=== PATIENT | male | born 1975 | race Caucasian/White ===

== ENCOUNTER 2019-08-08 09:57 | Outpatient (CLI) | payer OTHER, SELFPAY ==
[2019-08-08 12:02] LABS: HCT 40.5 % (40.0-50.0); HGB 13.4 g/dL (13.5-17.5); Mean Corp. HGB Concentration 33.1 g/dL (32.0-36.0); Mean Corpuscular Hemoglobin 31.8 pg (27.0-33.0); Mean Platelet Volume 10.3 fL (8.0-11.0); Platelet Count 339 x1000/uL (130-400); RBC 4.22 m/cumm (4.50-6.00); RBC Distribution Width 12.7 % (11.8-14.1); White Blood Cell Count 7.28 k/cumm (4.4-10.8)
[2019-08-08 12:05] LABS: Hemoglobin A1C 5.8 % (3.8-5.6)
[2019-08-08 13:20] LABS: ALT 115 U/L (16-63); AST 96 U/L (15-37); Alkaline Phosphatase 59 U/L (46-116); Anion Gap 15.6 mmol/L (3-11); BUN 9 mg/dL (7-18); Bilirubin, Total 0.5 mg/dL (0.2-1.0); CO2 25.4 mmol/L (21.0-32.0); CREATININE 0.92 mg/dL (0.70-1.30); Calcium 9.2 mg/dL (8.5-10.1); Calculated LDL 128 mg/dL (<100); Chloride 101 mmol/L (98-107); Cholesterol 201 mg/dL (<200); Glucose 71 mg/dL (74-106); HDL Cholesterol 48 mg/dL (40-60); Potassium 4.5 mmol/L (3.5-5.1); Sodium 142 mmol/L (136-145); Total Protein 8.2 g/dL (6.4-8.2); Triglyceride 125 mg/dL (<150)
[2019-08-08 13:32] LABS: Uric Acid 9.9 mg/dL (3.5-7.2)
== END 2019-08-08 10:17 ==
PROVIDERS: PCP Family Medicine; Visit Provider Family Medicine
DX: I10 Essential (primary) hypertension (principal); M10.9 Gout, unspecified
CPT/HCPCS: 36415; 80053; 80061; 85027; 83036; 84550

== ENCOUNTER 2019-09-04 03:51 | Outpatient (CLI) | payer OTHER, SELFPAY ==
[2019-09-04 14:16] LABS: Iron 148 ug/dL (65-175); Total Iron Binding Capacity 345 ug/dL (250-450); Transferrin Sat 43 % (20-55)
[2019-09-04 14:30] LABS: ALT 54 U/L (16-63); AST 56 U/L (15-37); Albumin 4.2 g/dL (3.4-5.0); Alkaline Phosphatase 56 U/L (46-116); Bilirubin, Direct 0.21 mg/dL (0.00-0.20); Bilirubin, Total 0.5 mg/dL (0.2-1.0); TSH (W/Ref FT4) 2.06 uIU/mL (0.36-3.74); Total Protein 8.6 g/dL (6.4-8.2)
[2019-09-04 14:53] LABS: Ferritin 881 ng/mL (26-388)
[2019-09-05 10:49] LABS: HBs Antibody, Qual Negative (See Note); HBs Antibody, Quant <3.1 mIU/mL (See Note); Hepatitis B Core Antibody Negative (Negative); Hepatitis B surface Ag Negative (Negative); Hepatitis C Ab w Rflx HCV PCR Negative (Negative)
== END 2019-09-04 04:11 ==
PROVIDERS: PCP Family Medicine; Visit Provider Family Medicine
DX: R94.5 Abnormal results of liver function studies (principal); Z11.59 Encounter for screening for other viral diseases
CPT/HCPCS: 36415; 80076; 86704; 86706; 86803; 87340; 82728; 83540; 83550; 84443

== ENCOUNTER 2019-09-10 00:58 | Outpatient (CLI) | payer OTHER, SELFPAY ==
--- NOTE | 2019-09-10 08:15 | DI.US_ITS ---
TECHNIQUE: Ultrasound abdomen performed using standard protocol. COMPARISON: No exams were available for comparison FINDINGS: LIVER: Increased echogenicity consistent with fatty infiltration. Hepatopedal flow in the Portal Vei n. No mass. GALLBLADDER: No evidence of cholelithiasis. No evidence of wall thickening. No pericholecystic fluid identified. 5 mm., echogenic, immobile nodule seen along the wall of the gallbladder most suggestive of a polyp. KIDNEYS: Kidneys are symmetric in size. No evidence of renal calculi. No evidence of hydronephrosis. No renal mass or cyst identified. BILIARY SYSTEM: Common bile duct measures 4.8 mm. No intrahepatic biliary ductal dilation. KOEHLER'S SIGN: Negative. PANCREAS: Normal where visualized. SPLEEN: Not enlarged. ABDOMINAL AORTA AND IVC: Visualized portions normal caliber. ASCITES: None seen. IMPRESSION: 1. Hepatic steatosis. 2. Gallbladder polyp. DATA REPOSITORY:
== END 2019-09-10 01:18 ==
PROVIDERS: PCP Family Medicine; Visit Provider Family Medicine
DX: R94.5 Abnormal results of liver function studies (principal); K76.0 Fatty (change of) liver, not elsewhere classified; K82.4 Cholesterolosis of gallbladder
CPT/HCPCS: 76700

== ENCOUNTER 2021-02-25 01:21 | Outpatient (CLI) | payer MEDICAID, SELFPAY ==
--- NOTE | 2021-02-25 07:15 | DI.MAMMO_ITS ---
Exam(s) US BREAST LT COMPLETE MG MAMMO DIAGNOSTIC BI EXAM: MG MAMMO DIAGNOSTIC BI AND COMPLETE LEFT BREAST ULTRASOUND CLINICAL HISTORY: lump of left breast, N63.0, N63.20. TECHNIQUE: BOTH CC AND MLO VIEWS OF BOTH BREASTS WERE OBTAINED were obtained with 3D Tomosynthesiste chnique and utilizing computer aided detection (CAD). Also performed complete left breast ultrasound including all 4 quadrants as well as the retroareolar region and left axilla COMPARISON: None. This 45-year-old male patient has left breast pain. He informs me that he has blount d asymmetry in the breast since being in teenager but it is more painful as of late. FINDINGS: DIAGNOSTIC BILATERAL MAMMOGRAM: There Is bilateral gynecomastia although this is significantly more prominent on the left side. Umanzor lamin, there is no discernible focal mass no malignant-appearing microcalcification groups. No archite ctural distortion or skin thickening-traction. COMPLETE LEFT BREAST ULTRASOUND: There is evidence of gynecomastia in left breast but no solid or significant cystic lesions evident. Also no findings in the immediate retroareolar region. Left axilla is negative for significant amada opathy. IMPRESSION: Gynecomastia, significantly more prominent in the left breast. Appropriate follow-up is repeat breast imaging in 6 months. The patient was informed of the findings by myself and follow-up recommendations prior to leaving the department today. BI-RADS Category 3 - 6 month - Probably Benign Finding: Recommend follow-up mammography in 6 months Breast Density - Category C - Heterogeneously dense Breast density Category C or D implies that the patient has dense breast tissue. Dense breast tissue can make it harder to find cancer on a mammogram. Dense breast tissue is also associated with an incr eased risk of breast cancer. This information about the result of the mammogram report was provided to the patient to raise their awareness. Use this report when you speak with the patient about their risks for breast cancer, which includes their family history. At that time, you may recommend additional screening tests (Ultrasoun d or MRI) as these tests may add significant information. A negative radiographic report should not delay biopsy if a dominant or clinically suspicious mass is present. Up to ten percent of cancers are not identified on mammography. A negative report may reinforce clinical impression. Adenosis and dense breasts may obscure an underlying neoplasm. False positive reports average 6 to 10%. Patient will receive a letter notifying them of these results.
== END 2021-02-25 01:41 ==
PROVIDERS: PCP Family Medicine; Visit Provider Family Medicine
DX: N62 Hypertrophy of breast; N64.4 Mastodynia
CPT/HCPCS: 76642; 77062; 77066; G0279

== ENCOUNTER 2021-05-21 02:20 | Outpatient (CLI) | payer MEDICAID, SELFPAY ==
[2021-05-21 13:37] LABS: Anion Gap 13.7 mmol/L (3-11); BUN 10 mg/dL (7-18); CO2 27.3 mmol/L (21.0-32.0); Calcium 9.7 mg/dL (8.5-10.1); Chloride 100 mmol/L (98-107); Glucose 96 mg/dL (74-106); Potassium 4.3 mmol/L (3.5-5.1); Sodium 141 mmol/L (136-145)
== END 2021-05-21 02:21 | disposition home or self-care (01) ==
LOC: LBO 02:20
PROVIDERS: PCP Family Medicine; Visit Provider Family Medicine
DX: I10 Essential (primary) hypertension (principal)
CPT/HCPCS: 36415; 80048

== ENCOUNTER 2022-10-03 12:00 | Emergency (ER) | payer MEDICAID, SELFPAY ==
[2022-10-03 12:05] VITALS: BP 182/112; PULSE 115; RESP 18; TEMP 37.3; O2SAT 97
[2022-10-03 12:25] LABS: Abs Immature Grans 0.02 10^3/uL (0.0-0.06); Absolute Basophil Count 0.03 10^3/uL (0.0-0.2); Absolute Eosinophil Count 0.01 10^3/uL (0.0-0.7); Absolute Lymphocyte Count 0.94 10^3/uL (1.2-3.4); Absolute Monocyte Count 0.72 10^3/uL (0.1-0.8); Absolute Neutrophil Count 5.55 10^3/uL (1.2-6.7); Basophils % 0.4; Eosinophils % 0.1; HCT 37.6 % (40.0-50.0); HGB 13.4 g/dL (13.5-17.5); Immature Grans % 0.3; Lymphocytes % 12.9; MCH 34.4 pg (27.0-33.0); MCHC 35.6 % (32.0-36.0); MCV 97 fL (80-95); MPV 10.1 fL (8.0-11.0); Monocytes % 9.9; Neutrophils % 76.4; Platelet Count 282 10^3/uL (130-400); RBC 3.89 10^6/uL (4.36-5.78); RDW 12.5 % (11.8-14.1); RDW-SD 44.3 fL; WBC 7.27 10^3/uL (4.4-10.8)
[2022-10-03] MEDS: ACETAMINOPHEN 1,000 MG/100 ML BTL 400 MG IVPB (12:41)
[2022-10-03 12:52] LABS: ALT 39 U/L (16-63); AST 54 U/L (15-37); Albumin 3.5 g/dL (3.4-5.0); Alkaline Phosphatase 73 U/L (46-116); Anion Gap 10.4 mmol/L (3-11); BUN 21 mg/dL (7-18); Bilirubin, Total 1.2 mg/dL (0.2-1.0); CO2 28.6 mmol/L (21.0-32.0); CREATININE 0.9 mg/dL (0.70-1.30); Calcium 9.8 mg/dL (8.5-10.1); Chloride 95 mmol/L (98-107); Estimated GFR 107.33 (mL/min/1.73m2); Glucose 117 mg/dL (74-106); Potassium 3.4 mmol/L (3.5-5.1); Sodium 134 mmol/L (136-145); Total Protein 8.6 g/dL (6.4-8.2); Uric Acid 6.4 mg/dL (3.5-7.2)
--- NOTE | 2022-10-03 13:14 | W.ED.GENAD ---
Discharge Plan Disposition Patient Disposition: Home Discharge Details Clinical Impression: Gout Primary Care Provider: Lyric Whitaker ED Provider: Willi Gordon Home Meds and New Rx's Prescriptions: New prednisone 50 mg tablet 50 mg PO DAILY 5 Days Qty: 5 0RF prednisone 10 mg tablet See Rx Instructions .ROUTE .COMPLEX Qty: 20 0RF Rx Instructions: Start taper once symptoms have improved on higher dose 40mg x 2 days, 30mg x 2 days, 20mg x 2 days, 10mg x 2 days Continued lisinopril 40 mg tablet 40 mg PO DAILY Qty: 90 3RF No Action allopurinol 300 mg tablet 300 mg PO DAILY Qty: 90 3RF Discharge Instructions Instructions: Gout (ED) Additional Instructions: Please start higher dose of steroids and take daily for up to 5 days. Once symptoms improve or you finish the 5 days of steroids please start your steroid taper. Please follow-up with your primary care provider for reassessment especially if your symptoms are not improving. Referrals: Lyric Whitaker MD [Primary Care Provider] - 5 days (If not improving call primary care office for follow-up appointment) Medical Decision Making Patient presenting to the emergency department for chief complaint of worsening gout. Patient states he has a long ongoing history of gout, takes allopurinol which she had been off for a while. He has been staying well-hydrated and thought he was getting better but over the last 2 days has noted some worsening symptoms. Pain is mostly in left knee and ankle which is typical for his gout flareups. Patient denies any fever chills, chest pain shortness of breath or other symptoms. Physical exam shows left knee effusion and swelling without erythema, patient can fully extend knee and bend knee but there is significant pain. There is some slight redness noted to left foot with also some slight edema. Exam is otherwise unremarkable. We will check patient's labs given worsening gout. Pending results will give IV acetaminophen. Review of labs show a chronic but stable anemia, patient does have slightly low sodium potassium and chloride which I feel is from patient attempting to over hydrate. BUN is elevated at 21 otherwise no other renal abnormality. Patient has elevated BUN and AST which patient reports he has a long ongoing drinker that is recently stopped. Patient's uric acid is only 6.4 but I still am concerned for gout given that patient has had exact same symptoms in the past that he x-ray reports are worse than today. Given that patient has already been using NSAIDs at home and noticing worsening symptoms and allopurinol will place patient on steroid taper. Patient encouraged to follow-up with primary care provider return for new or worsening symptoms. After discussion of diagnosis and plan of care patient has no further needs, questions, or concerns and states clear understanding to return to the emergency department for any worsening symptoms. This documentation was generated using [employer] dictation system, please disregard any oddities of phrase or misspellings. Medical Records Medical records reviewed: Yes I reviewed the patient's medical records. Medical records narrative: Previous primary care records Lab Data Lab results reviewed: Yes I reviewed the patient's lab results. HPI General Mode of arrival: ambulatory. Date/Time Provider Initiated Documentation: 10/03/22 12:14. Limitations to Documentation: no limitations. Information obtained by: patient and RN notes reviewed. History of Present Illness 47 year old M presents to the emergency department with the chief complaint of Gout flareup left lower extremity, described as moderate and similar to prior episodes, with intensity rated at 7. Quality is described as aching, and is localized to the left and lower extremity. Patient started experiencing this day(s) (10) and it has been constant. No relieving factors improve symptom(s), No exacerbating factors reported . Patient notes no other symptoms.. Patient did receive the following treatments prior to arrival, NSAID Related Data Home Medications Medication Instructions Recorded Confirmed allopurinol 300 mg tablet 300 mg PO DAILY #90 tabs 09/05/19 10/03/22 lisinopril 40 mg tablet 40 mg PO DAILY #90 tabs 05/29/21 10/03/22 prednisone 10 mg tablet See Rx Instructions .Route 10/03/22 .COMPLEX #20 tabs prednisone 50 mg tablet 50 mg PO DAILY 5 days #5 tabs 10/03/22 Previous Rx's Medication Instructions Recorded allopurinol 300 mg tablet 300 mg PO DAILY #90 tabs 09/05/19 lisinopril 40 mg tablet 40 mg PO DAILY #90 tabs 05/29/21 prednisone 10 mg tablet See Rx Instructions .Route 10/03/22 .COMPLEX #20 tabs prednisone 50 mg tablet 50 mg PO DAILY 5 days #5 tabs 10/03/22 Allergies Allergy/AdvReac Type Severity Reaction Status Date / Time No Known Allergies Allergy Verified 10/03/22 12:10 General Stated Complaint: Cellulitis HEVER: 3 Review of Systems Constitutional Constitutional: Denies chills and Denies fever(s) Cardiovascular Cardiovascular: Denies chest pain and Denies dyspnea Respiratory Respiratory: Denies dyspnea Gastrointestinal Gastrointestinal: Denies abdominal pain Genitourinary Genitourinary: Denies oliguria and Denies difficulty urinating Musculoskeletal Musculoskeletal: Reports as per HPI, Reports arthralgias and Reports joint swelling Integumentary/Breasts Skin/Breast: Reports erythema PFSH All Active Problems (Updated 10/03/22 @ 13:24 by Willi Gordon NP) Breast lump in upper outer quadrant (Acute) Elevated LFTs (Acute) Gout (Chronic) Family history of essential hypertension (Acute) Hypertension (Chronic) Family History Mother No problems noted. Father Rectal cancer Hypertension Son No problems noted. Maternal Grandfather , age 77 Leukemia Paternal Grandfather , age 62 No problems noted. Maternal Grandmother No problems noted. Paternal Grandmother , age 68 Stroke ? Social History Smoking/Tobacco Use Status: Never Smoking risk assessment performed?: Yes Alcohol Intake: former Drug use: Never Substance use type: does not use Current gender identity: decline to answer What is your relationship status?: refused to answer How often do you talk on the phone with friends or family?: decline to answer How often do you get together with friends or relatives?: decline to answer How often do you attend scientology or pentecostal services?: decline to answer Do you belong to any clubs or organized social groups?: decline to answer Panel score (0-1 are the most socially isolated patients): 0 What type of physical activity do you participate in: decline to answer Duration: decline to answer Frequency: decline to answer Sonam/Lutheran: No preference Special sonam needs: No Do you feel safe at home: Yes Do you feel safe in your relationship?: Yes Exam Const General: cooperative, no acute distress and not ill appearing Orientation: alert, awake and oriented x3 Resp Effort & Inspection: normal respiratory effort, able to speak in complete sentences and no respiratory distress Cardio Rate: regular rate Rhythm: regular rhythm Heart Sounds: S1 normal and S2 normal Pulses: normal peripheral pulses Skin General skin exam: no rashes or lesions noted Neuro General: patient alert, patient awake, patient oriented x3, moves all extremities and no focal motor deficits Sensory Exam: no sensory deficits noted Extrem Left lower extremity: hip/thigh Details: normal to inspection; no tenderness, knee Details: swelling Location: of the pre-patellar area and of the infrapatellar area and abnormal ROM Details: pain with active ROM and pain with passive ROM; able to extend lower leg actively, lower leg Details: normal to inspection; no tenderness, ankle Details: tenderness, swelling and normal ROM and foot Details: tenderness, edema and vascular exam Details: dorsalis pedis pulse present and normal capillary refill Course Vital Signs Vital signs: Vital Signs Temperature 37.3 C 10/03/22 12:05 Pulse 115 H 10/03/22 12:05 Respiratory Rate 18 10/03/22 12:05 Blood Pressure 182/112 H 10/03/22 12:05 Pulse Oximetry 97 10/03/22 12:05 Temperature 37.3 C 10/03/22 12:05 Pulse 115 H 10/03/22 12:05 Respiratory Rate 18 10/03/22 12:05 Respiratory Effort Normal, Non-Labored 10/03/22 12:11 Blood Pressure 182/112 H 10/03/22 12:05 Blood Pressure Position Supine 10/03/22 12:05 Pulse Oximetry 97 10/03/22 12:05 Oxygen Delivery Method Room Air 10/03/22 12:05 Oxygen Flow Rate 0 10/03/22 12:05 Lab/Test Results Lab/Test Results: Laboratory Tests Range/Units 10/03/22 10/03/22 12:20 12:20 WBC (4.4-10.8) 10^3/uL 7.27 RBC (4.36-5.78) 10^6/uL 3.89 L Hgb (13.5-17.5) g/dL 13.4 L Hct (40.0-50.0) % 37.6 L MCV (80-95) fL 97 H MCH (27.0-33.0) pg 34.4 H MCHC (32.0-36.0) % 35.6 RDW (11.8-14.1) % 12.5 Plt Count (130-400) 10^3/uL 282 MPV (8.0-11.0) fL 10.1 Immature Gran % 0.3 Neutrophils % 76.4 Lymphocytes % 12.9 Monocytes % 9.9 Eosinophils % 0.1 Basophils % 0.4 Nucleated RBC % (0.0-0.3) % 0.0 Absolute Neutrophils (1.2-6.7) 10^3/uL 5.55 Absolute Lymphocytes (1.2-3.4) 10^3/uL 0.94 L Absolute Monocytes (0.1-0.8) 10^3/uL 0.72 Absolute Eosinophils (0.0-0.7) 10^3/uL 0.01 Absolute Basophils (0.0-0.2) 10^3/uL 0.03 Sodium (136-145) mmol/L 134 L Potassium (3.5-5.1) mmol/L 3.4 L Chloride (98-107) mmol/L 95 L Carbon Dioxide (21.0-32.0) mmol/L 28.6 Anion Gap (3-11) mmol/L 10.4 BUN (7-18) mg/dL 21 H Creatinine (0.70-1.30) mg/dL 0.9 Est GFR (CKD-EPI 2020) (mL/min/1.73m2) 107.33 Glucose (74-106) mg/dL 117 H Uric Acid (3.5-7.2) mg/dL 6.4 Calcium (8.5-10.1) mg/dL 9.8 Total Bilirubin (0.2-1.0) mg/dL 1.2 H AST (15-37) U/L 54 H ALT (16-63) U/L 39 Alkaline Phosphatase (46-116) U/L 73 Total Protein (6.4-8.2) g/dL 8.6 H Albumin (3.4-5.0) g/dL 3.5
[2022-10-03 13:40] VITALS: BP 179/112; PULSE 94; RESP 20; O2SAT 97
[2022-10-03] MEDS: predniSONE 20 MG TAB 60 MG PO (13:40)
== END 2022-10-03 13:41 | disposition home or self-care (01) ==
PROVIDERS: Emergency Provider Nurse Practitioner Family; PCP Family Medicine
DX: M10.9 Gout, unspecified (principal); E87.6 Hypokalemia; D53.9 Nutritional anemia, unspecified; R79.89 Other specified abnormal findings of blood chemistry
CPT/HCPCS: 80053; 96365; 99284; 84550; 85025; J0131; J7512

== ENCOUNTER 2023-05-18 03:07 | Outpatient (CLI) | payer OTHER, SELFPAY ==
[2023-05-18 11:58] LABS: Abs Immature Grans 0.02 10^3/uL (0.0-0.06); Absolute Basophil Count 0.03 10^3/uL (0.0-0.2); Absolute Eosinophil Count 0.01 10^3/uL (0.0-0.7); Absolute Lymphocyte Count 1.73 10^3/uL (1.2-3.4); Absolute Monocyte Count 0.63 10^3/uL (0.1-0.8); Absolute Neutrophil Count 3.97 10^3/uL (1.2-6.7); Basophils % 0.5; Eosinophils % 0.2; HCT 37.9 % (40.0-50.0); HGB 13.8 g/dL (13.5-17.5); Immature Grans % 0.3; Lymphocytes % 27.1; MCH 35.2 pg (27.0-33.0); MCHC 36.4 % (32.0-36.0); MCV 97 fL (80-95); MPV 9.9 fL (8.0-11.0); Monocytes % 9.9; Platelet Count 182 10^3/uL (130-400); RBC 3.92 10^6/uL (4.36-5.78); RDW 13.4 % (11.8-14.1); RDW-SD 47.9 fL; WBC 6.39 10^3/uL (4.4-10.8)
[2023-05-18 12:41] LABS: ALT 66 U/L (16-63); AST 137 U/L (15-37); Albumin 4.3 g/dL (3.4-5.0); Alkaline Phosphatase 74 U/L (46-116); Anion Gap 11.7 mmol/L (3-11); BUN 12 mg/dL (7-18); Bilirubin, Total 0.6 mg/dL (0.2-1.0); CO2 27.3 mmol/L (21.0-32.0); CREATININE 0.9 mg/dL (0.70-1.30); Calcium 9.7 mg/dL (8.5-10.1); Calculated LDL 155 mg/dL (<100); Chloride 99 mmol/L (98-107); Cholesterol 252 mg/dL (<200); Estimated GFR 107.33 (mL/min/1.73m2); Glucose 92 mg/dL (74-106); HDL Cholesterol 61 mg/dL (40-60); Potassium 4.3 mmol/L (3.5-5.1); Sodium 138 mmol/L (136-145); TSH (W/Ref FT4) 1.92 uIU/mL (0.36-3.74); Total Protein 9.2 g/dL (6.4-8.2); Triglyceride 183 mg/dL (<150)
== END 2023-05-18 03:08 | disposition home or self-care (01) ==
LOC: LBO 03:07
PROVIDERS: PCP Family Medicine; Visit Provider Family Medicine
DX: E03.9 Hypothyroidism, unspecified (principal); I10 Essential (primary) hypertension; R68.83 Chills (without fever); Z13.6 Encounter for screening for cardiovascular disorders; Z00.00 Encounter for general adult medical examination without abnormal findings
CPT/HCPCS: 36415; 80053; 80061; 84443; 85025

== ENCOUNTER 2023-05-23 10:10 | Day surgery (SDC) | payer OTHER, SELFPAY ==
--- NOTE | 2023-05-22 15:21 | W.PM.DSUDISC ---
Date of service: 05/23/23 Discharge Plan Disposition Patient Disposition: Home Condition: Good Discharge Details Reason For Visit: screening colonoscopy Attending Provider: Hemal Martins Primary Care Provider: Lyric Whitaker Home Meds and New Rx's Prescriptions: Continued colchicine (gout) [Mitigare] 0.6 mg capsule See Rx Instructions PO .COMPLEX Qty: 20 1RF Rx Instructions: 2 tabs po at gout onset, then 1 tab po 6 hours later. May use once daily until gout episode resolves. orally; lisinopril 40 mg tablet 40 mg PO DAILY Qty: 90 3RF metoprolol succinate 25 mg tablet extended release 24 hr 25 mg PO DAILY Qty: 30 3RF Discontinued bisacodyl [Dulcolax (bisacodyl)] 5 mg tablet,delayed release (DR/EC) 5 mg PO ONCE Qty: 4 0RF Rx Instructions: Take per colonoscopy instructions provided by ordering providers office polyethylene glycol 3350 17 gram/dose powder 17 g PO ONCE Qty: 238 0RF Rx Instructions: Take per colonoscopy instructions provided by ordering providers office Discharge Instructions Additional Instructions: 1. If tolerated, consume a soft, low fiber diet for 1-2 days. [address] Do not drive, drink alcohol, operate machinery, make critical decisions, or do activities that require coordination or balance for 24 hours. 3. Because air was put into your colon during the procedure, expelling air from your rectum (passing gas or farting) is normal. 4. You may not have a bowel movement for 1-3 days because of the colonoscopy prep. This is normal. 5. Go directly to the emergency room if you notice any of the following: Develop chills (warm to touch), or if you have a thermometer and your temperature is above 101 Difficulty breathing or difficultly swallowing Persistent vomiting Severe abdominal pain, other than gas cramps Severe chest pain Black, tarry stools Any bleeding ? exceeding one tablespoon 6. Call your physician if the site where your intravenous was started becomes red, swollen, painful, and warm to touch. 7. Your physician has reviewed your pre-procedure medications. Please continue to take those medications as previously ordered. You will be given specific information/education regarding any changes to your medications before leaving. Activity:: Activity as Tolerated Diet:: As Tolerated
--- NOTE | 2023-05-22 15:22 | W.COLOREPORT ---
Date of service: 05/23/23 Colonoscopy Report Date of procedure: 05/23/23 Pre-op diagnosis general: screening colonoscopy Procedure: Colonoscopy Surgeon: Hemal Martins Anesthesia Type: General:No Airway Complications: None Disposition: same day Indications: Demetris is 47 years old and he is here for his first screening colonoscopy Prep: Miralax/Dulcolax
--- NOTE | 2023-05-23 07:14 | W.ANESPRE ---
General Info Date of Service Date Performed: 05/23/23 Height: 5 ft 6 in Weight: 84.822 kg Body Mass Index (BMI): 30.2 Surgical Procedure: Operation Date: 05/23/23 12:05 Proposed Procedure Side Surgeon p Colonoscopy Hemal Martins MD Meds Allergies and Home Medications Allergies Allergy/AdvReac Type Severity Reaction Status Date / Time No Known Allergies Allergy Verified 05/23/23 10:26 Home Medication Medication Instructions Recorded colchicine (gout) 0.6 mg capsule See Rx Instructions PO .COMPLEX 10/06/22 (Mitigare) #20 caps lisinopril 40 mg tablet 40 mg PO DAILY #90 tabs 04/06/23 metoprolol succinate 25 mg 25 mg PO DAILY #30 tabs 05/13/23 tablet,extended release 24 hr Current Visit Medications: Current Medications Generic Name Dose Route Start Last Admin Trade Name Freq PRN Reason Stop Dose Admin Hyoscyamine Sulfate 0.125 mg 05/22/23 15:23 Hyoscyamine 0.125 Mg Sl/Oral/Chew SL 06/21/23 15:22 DIRECTED PRN Ringer's Solution 1,000 mls @ 80 mls/hr 05/23/23 06:00 IV 05/23/23 23:59 INFUSION KEZIA IV Miscellaneous Supplies 1 each 05/23/23 06:00 Iv Access IV 05/23/23 23:59 DIRECTED KEZIA Ondansetron HCl 4 mg 05/22/23 15:23 Ondansetron 4 Mg/2 Ml Vial IVP 06/21/23 15:22 Q4H PRN PRN Nausea / Vomiting Sodium Chloride 0 ml 05/23/23 06:00 Normal Saline Flush 10 Ml Syr IV 05/23/23 23:59 PRN PRN Sodium Chloride 0 ml 05/23/23 06:00 Normal Saline 10 Ml Vial IJ 05/23/23 23:59 DIRECTED PRN Sterile Water 0 ml 05/23/23 06:00 Water,Injection,Sterile 10 Ml Vial IJ 05/23/23 23:59 DIRECTED PRN PFSH Active Problems Active Problems: Problem Status Onset Code Abnormal liver enzymes R74.8 FH: colon cancer in relative diagnosed at >50 years old Z80.0 Gout M10.9 Hypertension ~2012 I10 Medical History Medical History Comments:: Will be doing home BP monitoring with new addition of Metopropol per pre op request Tobacco Smoking/Tobacco Use Status: Never Alcohol Alcohol Intake: current Alcohol intake frequency: 3 or more drinks per day Alcohol type: beer, wine, hard liquor and other Substance Use Substance use: Never Substance use type: does not use Vital Signs and Lab Results Vital Signs Most Recent Vital Signs in EMR: Temp Pulse Resp BP Pulse Ox 36.4 C L 107 H 18 209/118 H 98 05/23/23 10:28 05/23/23 10:28 05/23/23 10:28 05/23/23 10:28 05/23/23 10:28 Lab Results Blood Type / Crossmatch: No Data to Display Complete Blood Count: White Blood Count 6.39 10^3/uL (4.4-10.8) 05/18/23 11:55 Red Blood Count 3.92 10^6/uL (4.36-5.78) L 05/18/23 11:55 Hemoglobin 13.8 g/dL (13.5-17.5) 05/18/23 11:55 Hematocrit 37.9 % (40.0-50.0) L 05/18/23 11:55 Platelet Count 182 10^3/uL (130-400) 05/18/23 11:55 Complete Metabolic Panel: Sodium 138 mmol/L (136-145) 05/18/23 11:55 Potassium 4.3 mmol/L (3.5-5.1) 05/18/23 11:55 Chloride 99 mmol/L (98-107) 05/18/23 11:55 Carbon Dioxide 27.3 mmol/L (21.0-32.0) 05/18/23 11:55 BUN 12 mg/dL (7-18) 05/18/23 11:55 Creatinine 0.9 mg/dL (0.70-1.30) 05/18/23 11:55 Est GFR (CKD-EPI 2020) 107.33 (mL/min/1.73m2) 05/18/23 11:55 Calcium 9.7 mg/dL (8.5-10.1) 05/18/23 11:55 Albumin 4.3 g/dL (3.4-5.0) 05/18/23 11:55 Glucose 92 mg/dL (74-106) 05/18/23 11:55 Liver Function Panel: Alanine Aminotransferase (ALT/SGPT) 66 U/L (16-63) H 05/18/23 11:55 Aspartate Amino Transf (AST/SGOT) 137 U/L (15-37) H 05/18/23 11:55 Coagulation Panel: No Data to Display Cardiac Panel: No Data to Display Arterial Blood Gas: No Data to Display Venous Blood Gas: No Data to Display Pancreas Panel: No Data to Display Thyroid Panel: Thyroid Stimulating Hormone (TSH) 1.92 uIU/mL (0.36-3.74) 05/18/23 11:55 Infectious Disease: No Data to Display Blood Cultures: No Data to Display Toxicology Panel: No Data to Display Anesthesia Assessment and Plan Anesthesia History Personal History: No History of Anesthesia Complications Family History: Other Exercise Tolerance Exercise Tolerance: Metabolic Equivalents>4 Cardiac & Pulmonary Exam Cardiac Exam: Other Pulmonary Exam: Other Implantable Cardiac Device Does patient have a Pacemaker or an ICD?: No Airway Exam Known Difficult Airway: No Mallampati Class: Unable to Assess Mouth Opening: Unable to Assess Thyromental Distance: Other Neck Range of Motion: Unable to Assess Neck Circumference: Normal Teeth Condition: Unable to Assess ASA Classification ASA Score: ASA 3 Emergency Case?: No NPO Status NPO Status: NPO Clears >2 hours, Solids >8 hours Anesthesia Plan Resuscitation Status: Full Code Anesthesia Technique: General Anesthesia Airway Planned: Natural Airway Monitors Used: Standard Monitors Preoperative Comments:: 47 yo male for colo. Sig PMHx: HTN (metop, lisinopril), gout, never smoker, occ EtOH. A full preop was not performed. Demetris's BP consistently with DBP > 110, discussed risks of proceeding. States that he does have a headache today that he typically does not have even when fasted. We discussed that he should be seen today by someone in regards to his BP and he was encouraged to discuss this with the PCP who has been actively management his BP (he is scheduled for liver and renal US in the near future) or he should consider going to the ER. We discussed the risk of his BP (stroke) and that he should give consideration of presenting to the ED.
[2023-05-23 10:28] VITALS: BP 209/118; PULSE 107; RESP 18; TEMP 36.4; O2SAT 98
[2023-05-23 11:14] VITALS: BMI 30.2
== END 2023-05-23 10:11 | disposition home or self-care (01) ==
LOC: SUR 10:10
PROVIDERS: PCP Family Medicine; Visit Provider Surgery
DX: Z53.09 Procedure and treatment not carried out because of other contraindication (principal); I10 Essential (primary) hypertension

== ENCOUNTER 2023-06-10 03:13 | Outpatient (CLI) | payer OTHER, SELFPAY ==
[2023-06-10 13:34] LABS: Bilirubin Small (Negative); Blood Negative (Negative); Clarity Clear (Clear); Glucose Negative (Negative); Ketones 15 mg/dL (Negative); Leukocyte Esterase Negative (Negative); Nitrite Negative (Negative); pH 6.5 (5-8)
[2023-06-10 13:42] LABS: Bacteria Negative HPF (Negative); C & S Indicated? No; Casts 0-2 Hyaline LPF (Negative); Crystals Negative HPF (Negative); Epithelial Cells Rare HPF (Negative); Mucus Negative (Negative); RBC Negative HPF (0-2); WBC Negative HPF (0-5)
[2023-06-10 13:50] LABS: PROTEIN 43.6 mg/dL; Prot/Crea Ur Ratio 0.11
[2023-06-10 13:56] LABS: ALT 59 U/L (16-63); AST 79 U/L (15-37); Albumin 4.9 g/dL (3.4-5.0); Alkaline Phosphatase 73 U/L (46-116); Anion Gap 13.7 mmol/L (3-11); BUN 17 mg/dL (7-18); CO2 27.3 mmol/L (21.0-32.0); CREATININE 1.1 mg/dL (0.70-1.30); Calcium 10.3 mg/dL (8.5-10.1); Chloride 98 mmol/L (98-107); Estimated GFR 83.84 (mL/min/1.73m2); Glucose 104 mg/dL (74-106); Sodium 139 mmol/L (136-145); Total Protein 9.4 g/dL (6.4-8.2)
[2023-06-10 22:21] LABS: HIV-1/2 Ag & Ab Screen Negative (Negative)
[2023-06-11 00:29] LABS: Hepatitis C Ab w Rflx HCV PCR Negative (Negative)
[2023-06-13 13:59] LABS: Albumin 57.4 % (55.8-66.1); Albumin g/dL 5.3 g/dL (3.6-5.2); Total Protein 9.3 g/dL (6.3-8.2)
[2023-06-13 15:36] LABS: Albumin, Urine % 19.2 %; Albumin, Urine mg/dL 2 mg/dL; Globulins, Urine % 80.8 %; Globulins, Urine mg/dL 7 mg/dL; Immunotyping, Urine (See Note); Total Protein Urine 9 mg/dL (See Note)
== END 2023-06-10 03:14 | disposition home or self-care (01) ==
LOC: LBO 03:13
PROVIDERS: PCP Family Medicine; Visit Provider Family Medicine
DX: I10 Essential (primary) hypertension (principal); M1A.09X0 Idiopathic chronic gout, multiple sites, without tophus (tophi); R74.8 Abnormal levels of other serum enzymes; Z11.4 Encounter for screening for human immunodeficiency virus [HIV]; R30.0 Dysuria; Z00.00 Encounter for general adult medical examination without abnormal findings; K76.0 Fatty (change of) liver, not elsewhere classified
CPT/HCPCS: 36415; 80053; 84156; 84166; 86335; 86803; 87389; 81003; 81015; 82565; 84165

== ENCOUNTER 2023-08-16 03:23 | Outpatient (CLI) | payer OTHER, SELFPAY ==
[2023-08-16 16:12] LABS: ALT 64 U/L (16-63); AST 125 U/L (15-37); Albumin 4.6 g/dL (3.4-5.0); Alkaline Phosphatase 81 U/L (46-116); Anion Gap 16.6 mmol/L (3-11); BUN 13 mg/dL (7-18); CO2 23.4 mmol/L (21.0-32.0); CREATININE 1.1 mg/dL (0.70-1.30); Calcium 9.7 mg/dL (8.5-10.1); Chloride 97 mmol/L (98-107); Estimated GFR 83.84 (mL/min/1.73m2); Glucose 89 mg/dL (74-106); Potassium 4.3 mmol/L (3.5-5.1); Sodium 137 mmol/L (136-145); Total Protein 9.8 g/dL (6.4-8.2)
== END 2023-08-16 03:24 | disposition home or self-care (01) ==
LOC: LBO 03:23
PROVIDERS: PCP Family Medicine; Visit Provider Family Medicine
DX: Z00.00 Encounter for general adult medical examination without abnormal findings (principal); I10 Essential (primary) hypertension
CPT/HCPCS: 36415; 80053

== ENCOUNTER 2023-11-09 12:46 | Outpatient (CLI) | payer OTHER, SELFPAY ==
[2023-11-09 15:38] LABS: Abs Immature Grans 0.02 10^3/uL (0.0-0.06); Absolute Basophil Count 0.05 10^3/uL (0.0-0.2); Absolute Lymphocyte Count 1.51 10^3/uL (1.2-3.4); Absolute Monocyte Count 0.48 10^3/uL (0.1-0.8); Absolute Neutrophil Count 5.47 10^3/uL (1.2-6.7); Basophils % 0.7 %; HGB 14.4 g/dL (13.5-17.5); Immature Grans % 0.3 %; Lymphocytes % 20.1 %; MCH 35.6 pg (27.0-33.0); MCHC 35.1 % (32.0-36.0); MCV 101 fL (80-95); MPV 10.1 fL (8.0-11.0); Monocytes % 6.4 %; Neutrophils % 72.5 %; Platelet Count 209 10^3/uL (130-400); RBC 4.05 10^6/uL (4.36-5.78); RDW 12.8 % (11.8-14.1); WBC 7.53 10^3/uL (4.4-10.8)
[2023-11-09 16:22] LABS: ALT 56 U/L (16-63); AST 74 U/L (15-37); Albumin 4.5 g/dL (3.4-5.0); Alkaline Phosphatase 71 U/L (46-116); Anion Gap 11.8 mmol/L (3-11); BUN 18 mg/dL (7-18); Bilirubin, Total 0.6 mg/dL (0.2-1.0); CO2 28.2 mmol/L (21.0-32.0); CREATININE 1.2 mg/dL (0.70-1.30); Chloride 101 mmol/L (98-107); Estimated GFR 75.53 (mL/min/1.73m2); Glucose 122 mg/dL (74-106); Potassium 4.7 mmol/L (3.5-5.1); Sodium 141 mmol/L (136-145); Total Protein 8.9 g/dL (6.4-8.2)
== END 2023-11-09 12:47 | disposition home or self-care (01) ==
LOC: LBO 12:47
PROVIDERS: PCP Family Medicine; Visit Provider Family Medicine
DX: Z00.00 Encounter for general adult medical examination without abnormal findings (principal); K76.0 Fatty (change of) liver, not elsewhere classified
CPT/HCPCS: 36415; 80053; 85025

== ENCOUNTER 2023-12-21 07:38 | Day surgery (SDC) | payer OTHER, SELFPAY ==
[2023-12-21 08:01] VITALS: BP 139/90; PULSE 109; RESP 16; TEMP 36.8; O2SAT 98
[2023-12-21] MEDS: Lactated Ringers 1,000 ML 80 ML IV (08:03)
--- NOTE | 2023-12-21 08:45 | W.ANESPRE ---
General Info Date of Service Date Performed: 12/21/23 Height: 5 ft 6 in Weight: 84.425 kg Body Mass Index (BMI): 30.0 Surgical Procedure: Operation Date: 12/21/23 09:35 Proposed Procedure Side Surgeon p Dajuan Bueno MD Meds Allergies and Home Medications Allergies Allergy/AdvReac Type Severity Reaction Status Date / Time No Known Allergies Allergy Verified 12/21/23 07:46 Home Medication Medication Instructions Recorded colchicine 0.6 mg capsule See Rx Instructions PO .COMPLEX 10/06/22 (Mitigare) #20 caps lisinopril 40 mg tablet 40 mg PO DAILY #90 tabs 04/06/23 amlodipine 5 mg tablet 5 mg PO DAILY #90 tabs 06/01/23 Current Visit Medications: Current Medications Generic Name Dose Route Start Last Admin Trade Name Freq PRN Reason Stop Dose Admin Ringer's Solution 1,000 mls @ 80 mls/hr 12/21/23 06:00 12/21/23 08:03 IV 12/21/23 23:59 80 mls/hr INFUSION KEZIA Administration IV Miscellaneous Supplies 1 each 12/21/23 06:00 Iv Access IV 12/21/23 23:59 DIRECTED KEZIA Sodium Chloride 0 ml 12/21/23 06:00 Normal Saline Flush 10 Ml Syr IV 12/21/23 23:59 PRN PRN Sodium Chloride 0 ml 12/21/23 06:00 Normal Saline 10 Ml Vial IJ 12/21/23 23:59 DIRECTED PRN Sterile Water 0 ml 12/21/23 06:00 Water,Injection,Sterile 10 Ml Vial IJ 12/21/23 23:59 DIRECTED PRN PFSH Active Problems Active Problems: Problem Status Onset Code Heavy alcohol use F10.90 Hepatic steatosis K76.0 FH: colon cancer in relative diagnosed at >50 years old Z80.0 Gout M10.9 Hypertension ~2013 I10 Tobacco Smoking/Tobacco Use Status: Never Passive smoking exposure: No Alcohol Alcohol Intake: current Alcohol intake frequency: 0-2 drinks per day Alcohol type: beer, wine, hard liquor and other Substance Use Substance use: Never Substance use type: does not use Vital Signs and Lab Results Vital Signs Most Recent Vital Signs in EMR: Most Recent Vital Signs Temp Pulse Resp BP Pulse Ox 36.8 C 109 H 16 139/90 98 12/21/23 08:01 12/21/23 08:01 12/21/23 08:01 12/21/23 08:01 12/21/23 08:01 Lab Results Blood Type / Crossmatch: No Data to Display Complete Blood Count: No Data to Display Complete Metabolic Panel: No Data to Display Liver Function Panel: No Data to Display Coagulation Panel: No Data to Display Cardiac Panel: No Data to Display Arterial Blood Gas: No Data to Display Venous Blood Gas: No Data to Display Pancreas Panel: No Data to Display Thyroid Panel: No Data to Display Infectious Disease: No Data to Display Blood Cultures: No Data to Display Toxicology Panel: No Data to Display Anesthesia Assessment and Plan Anesthesia History Personal History: No History of Anesthesia Complications Family History: No Family History of Anesthesia Complications Exercise Tolerance Exercise Tolerance: Metabolic Equivalents>4 Pertinent Negatives Pertinent Negatives: No Major Cardiovascular Symptoms or Complaints and No Major Pulmonary Symptoms or Complaints Cardiac & Pulmonary Exam Cardiac Exam: Normal S1/S2 Heart Sounds Pulmonary Exam: Clear Bilateral Breath Sounds Implantable Cardiac Device Does patient have a Pacemaker or an ICD?: No Airway Exam Known Difficult Airway: No Mallampati Class: 3 Mouth Opening: Normal (> 3cm) Thyromental Distance: Greater than 3 cm Neck Range of Motion: Full ROM Neck Circumference: Normal Teeth Condition: Normal Dentition ASA Classification ASA Score: ASA 2 Emergency Case?: No NPO Status NPO Status: NPO Clears >2 hours, Solids >8 hours Anesthesia Plan Resuscitation Status: Full Code Anesthesia Technique: General Anesthesia Airway Planned: Natural Airway Monitors Used: Standard Monitors Preoperative Comments:: Reports feeling hungry, no active GERD symptoms, but does have occasionally after eating.
--- NOTE | 2023-12-21 09:40 | BOWEL_PTH ---
PATIENT: Demetris Torres LOC: [facility] U#:[id number] AGE/SX: 48/M ROOM: RE12/21/[address]: Daniel Bueno : 1975 BED: DIS: 12/21/2023 SPEC #: [id number] RECD: 12/21/23 13:07 STATUS: [facility] #: [id number] CHRISTINE: 12/21/23 09:[address]: Daniel Bueno DEPT: Surgical Specimen RECD BY: Sejal Maldonado ENTERED: 12/21/23 13:08 SP TYPE: Bowel OTHR DR: yLric Whitaker Tissues: 1 - BIOPSY BOWEL 2 - BIOPSY BOWEL 3 - BIOPSY BOWEL Procedures: GROSS AND MICRO LEVEL 4 Comments: [id number]
[2023-12-21 09:54] VITALS: BP 131/96; PULSE 107; RESP 18; TEMP 36.5; O2SAT 96
--- NOTE | 2023-12-21 09:54 | W.COLOREPORT ---
Date of service: 12/21/23 Time of Service: 09:54 Colonoscopy Report Procedure Description: PROCEDURES PERFORMED: 1. Colonoscopy with hot snare polypectomy x3 2. Fulguration/ablation/destruction of polyp x 1 PREOPERATIVE DIAGNOSIS: Screening colonoscopy POSTOPERATIVE DIAGNOSIS: Colorectal polyps SURGEON: Madyson Bueno MD INDICATION for procedure: 48-year-old man who reports his father had colon cancer. He has no symptoms. No previous colonoscopy. FINDINGS: Terminal ileum was normal. No right?sided polyps. In the descending colon a 10-12 mm pedunculated polyp was removed with hot snare technique. In the sigmoid colon another 7-10 mm pedunculated polyp was removed with hot snare technique. In the rectum a 3-5 mm sessile polyp was removed with hot snare technique. Another 2-3 mm adenomatous?appearing polyp was ablated with the tip of the hot snare. No diverticular disease. No obvious hemorrhoid disease. SURVEILLANCE interval/FOLLOW-UP: 3 years. (Sooner if dysplasia present in the polyps removed though that is not expected) SPECIMENS: yes EBL: Minimal COMPLICATIONS: None QUALITY of prep: Excellent Procedure in detail: The patient gave written consent and was in agreement with the indications, the potential risks as well as the benefits of the procedure. They were taken to the endoscopy suite and laid in the left lateral decubitus position. A timeout was performed and anesthesia was administered which was tolerated well. I started the procedure. Digital rectal and visual examination was performed and grossly within normal limits. A well-lubricated flexible colonoscope was then introduced and passed without any notable difficulty all the way to the cecum identified by the ileocecal valve and the appendiceal orifice. The terminal ileum was intubated and looked normal. The scope was then slowly withdrawn with the above-noted findings. The patient tolerated the procedure well and was taken to the PACU in hemodynamically stable condition.
--- NOTE | 2023-12-21 09:59 | W.PM.DSUDISC ---
Date of service: 12/21/23 Time of Service: 09:59 Discharge Plan Disposition Patient Disposition: Home Condition: Good Discharge Details Attending Provider: Daniel Bueno Primary Care Provider: Lyric Whitaker Home Meds and New Rx's Prescriptions: No Action colchicine [Mitigare] 0.6 mg capsule See Rx Instructions PO .COMPLEX Qty: 20 1RF Rx Instructions: 2 tabs po at gout onset, then 1 tab po 6 hours later. May use once daily until gout episode resolves. orally; lisinopril 40 mg tablet 40 mg PO DAILY Qty: 90 3RF amlodipine 5 mg tablet 5 mg PO DAILY Qty: 90 3RF Discharge Instructions Additional Instructions: FINDINGS: For large advanced polyps were removed from your colon today. This is the reason we do the colonoscopies. They are completely out of your body and do not need to worry about them any further. However, because of your family history and the findings today, it is highly recommended that you repeat another colonoscopy in 3 years. Activity:: Activity as Tolerated Diet:: As Tolerated
--- NOTE | 2023-12-21 10:01 | W.ANESPOSTOP ---
Postoperative Evaluation Date, Time and Location Date Performed: 12/21/23 Time Performed: 10:00 Patient Location: Day Surgery Unit Vital Signs Most Recent Imported Vital Signs: Most Recent Vital Signs Temp Pulse Resp BP Pulse Ox 36.5 C 107 H 18 131/96 H 96 12/21/23 09:54 12/21/23 09:54 12/21/23 09:54 12/21/23 09:54 12/21/23 09:54 Pain Score Most Recent Pain Score: Most Recent Pain Score Pain Level 0 12/21/23 09:54 Assessment Mental Status: Awake (Alert & Oriented to Patient Baseline) Airway and Respiratory Function: Patent airway with normal (patient baseline) respiratory exam Cardiovascular Function: Hemodynamically Stable Hydration Status: Adequately Hydrated Nausea & Vomiting: No Nausea or Vomiting Pain: Pt. Denies Any Pain Peripheral Nerve Block: Patient did not receive a nerve block
[2023-12-21 10:22] VITALS: BP 133/98; PULSE 93; RESP 18; TEMP 36.6; O2SAT 97
== END 2023-12-21 11:01 | disposition home or self-care (01) ==
PROVIDERS: PCP Family Medicine; Visit Provider Student in an Organized Health Care Education/Training Program
PROC: 0DJD8ZZ Inspection of Lower Intestinal Tract, Via Natural or Artificial Opening Endoscopic (ICD-10-PCS; CPT 45378; principal; 2023-12-21 09:30)
DX: Z12.11 Encounter for screening for malignant neoplasm of colon (principal); K76.0 Fatty (change of) liver, not elsewhere classified; I10 Essential (primary) hypertension; D37.4 Neoplasm of uncertain behavior of colon; D12.8 Benign neoplasm of rectum
CPT/HCPCS: 45385; 45388; 00123; 88305; J2001; J2704

== ENCOUNTER 2024-02-08 09:18 | Outpatient (CLI) | payer OTHER, SELFPAY ==
[2024-02-08 14:02] LABS: ALT 55 U/L (16-63); AST 65 U/L (15-37); Albumin 4.2 g/dL (3.4-5.0); Alkaline Phosphatase 75 U/L (46-116); Anion Gap 15.1 mmol/L (3-11); BUN 7 mg/dL (7-18); Bilirubin, Total 0.61 mg/dL (0.2-1.0); CO2 25.9 mmol/L (21.0-32.0); CREATININE 1.1 mg/dL (0.70-1.30); Calcium 9.6 mg/dL (8.5-10.1); Chloride 99 mmol/L (98-107); Estimated GFR 83.84 (mL/min/1.73m2); Glucose 133 mg/dL (74-106); Potassium 3.6 mmol/L (3.5-5.1); Sodium 140 mmol/L (136-145); Total Protein 9.1 g/dL (6.4-8.2); Vitamin B12 402 pg/mL (193-986)
[2024-02-09 11:25] LABS: Uric Acid 10.9 mg/dL (3.5-7.2)
== END 2024-02-08 09:19 | disposition home or self-care (01) ==
LOC: LOS 09:18
PROVIDERS: PCP Family Medicine; Referring Provider Family Medicine; Visit Provider Family Medicine
DX: M1A.9XX0 Chronic gout, unspecified, without tophus (tophi) (principal); M1A.09X0 Idiopathic chronic gout, multiple sites, without tophus (tophi); F10.90 Alcohol use, unspecified, uncomplicated; Z00.00 Encounter for general adult medical examination without abnormal findings; I10 Essential (primary) hypertension
CPT/HCPCS: 36415; 80053; 82607; 84550

== ENCOUNTER 2024-11-25 15:06 | Emergency (ER) | payer OTHER, SELFPAY ==
[2024-11-25] VITALS (32 sets, daily range): BP systolic 87–120; BP diastolic 43–67; PULSE 91–115; RESP 1–20; TEMP 36.7; O2SAT 93–99
--- NOTE | 2024-11-25 15:00 | RT.EKG_ITS ---
APPROVED REPORT Exam: Resting ECG Reason for Exam: chest pain Patient Location: E HR:118 bpm ECG Measurements Heart Rate 118 AXIS CO 144 P 86 QRSd 91 QRS 29 QT 333 T 40 QTc 465 Conclusion Sinus tachycardia, rate 118 No interval abnormalities No STEMI No priors available for comparison
--- NOTE | 2024-11-25 15:15 | DI.RAD_ITS ---
Exam(s) XR CHEST 2V PA LATERAL EXAM: XR CHEST 2V PA LATERAL CLINICAL HISTORY: Chest pain TECHNIQUE: 2D digital imaging was performed. Two views. COMPARISON: CR CHEST 2 VIEWS PA,LAT from 03/04/2010 FINDINGS: HEART: Normal size. Aorta: Not dilated. PULMONARY VASCULATURE: Normal. MEDIASTINUM: Unremarkable. LUNGS: Clear. PLEURAL SPACE: No pleural effusion or pneumothorax. BONE:Unremarkable for age. SOFT TISSUES: Unremarkable. IMPRESSION: No acute abnormality. DATA REPOSITORY: RADIATION DOSE DELIVERED:
[2024-11-25 15:36] LABS: Abs Immature Grans 0.03 10^3/uL (0.0-0.06); Absolute Basophil Count 0.01 10^3/uL (0.0-0.2); Absolute Eosinophil Count 0.02 10^3/uL (0.0-0.7); Absolute Lymphocyte Count 1.26 10^3/uL (1.2-3.4); Absolute Monocyte Count 0.55 10^3/uL (0.1-0.8); Absolute Neutrophil Count 3.98 10^3/uL (1.2-6.7); Basophils % 0.2 %; Eosinophils % 0.3 %; HCT 23.8 % (40.0-50.0); HGB 8.2 g/dL (13.5-17.5); Immature Grans % 0.5 %; Lymphocytes % 21.5 %; MCH 33.3 pg (27.0-33.0); MCHC 34.5 % (32.0-36.0); MCV 97 fL (80-95); MPV 9.8 fL (8.0-11.0); Monocytes % 9.4 %; Neutrophils % 68.1 %; Platelet Count 288 10^3/uL (130-400); RBC 2.46 10^6/uL (4.36-5.78); RDW 13.8 % (11.8-14.1); RDW-SD 48.7 fL; WBC 5.85 10^3/uL (4.4-10.8)
[2024-11-25 15:49] LABS: Prothrombin Time 10.3 sec (9.1-11.1)
[2024-11-25 15:53] LABS: Basophilic Stippling 1+; Diff Comment RBC Morph Reviewed
[2024-11-25 15:54] LABS: Polychromasia Present
[2024-11-25 15:58] LABS: ALT 48 U/L (16-63); AST 36 U/L (15-37); Albumin 3.9 g/dL (3.4-5.0); Alkaline Phosphatase 62 U/L (46-116); BUN 61 mg/dL (7-18); Bilirubin, Total 0.2 mg/dL (0.2-1.0); CREATININE 2.6 mg/dL (0.70-1.30); Calcium 9.9 mg/dL (8.5-10.1); Chloride 95 mmol/L (98-107); Estimated GFR 29.68 (mL/min/1.73m2); Lipase 132 U/L (<78); Magnesium 2.3 mg/dL (1.8-2.4); Potassium 3.7 mmol/L (3.5-5.1); Sodium 131 mmol/L (136-145); Troponin I 11 ng/L (<or=76)
[2024-11-25 16:02] LABS: Glucose 308 mg/dL (74-106)
--- NOTE | 2024-11-25 16:02 | DI.VRAD_ITS ---
PROCEDURE INFORMATION: Exam: XR Chest Exam date and time: 11/25/2024 3:38 PM Age: 49 years old Clinical indication: Other: Chest pain TECHNIQUE: Imaging protocol: Radiologic exam of the chest. Views: 2 views. COMPARISON: No relevant prior studies available. FINDINGS: Lungs: Unremarkable. No consolidation. Pleural spaces: Unremarkable. No pleural effusion. No pneumothorax. Heart/Mediastinum: Unremarkable. No cardiomegaly. Bones/joints: Unremarkable. IMPRESSION: No evidence for acute abnormality in the chest. Dictated and Authenticated by: Pretty Evangelista MD. Orderin St. Ayaan Mendez MD
[2024-11-25] MEDS: Lactated Ringers 1,000 ML 1000 ML IV (16:21)
[2024-11-25] MEDS: Pantoprazole 40 MG VIAL 80 MG IVP (16:44)
[2024-11-25] MEDS: Normal Saline 50 ML (16:45)
[2024-11-25 16:46] LABS: Troponin I 12 ng/L (<or=76)
--- NOTE | 2024-11-25 18:02 | W.ED.GENAD ---
Discharge Plan Disposition Patient Disposition: Against Medical Advice Condition: Stable Discharge Details Clinical Impression: GI bleed, Heavy alcohol use, Anemia, BRYANT (acute kidney injury) Primary Care Provider: Lyric Whitaker ED Provider: Vanessa Win Home Meds and New Rx's Prescriptions: New pantoprazole 40 mg tablet,delayed release (DR/EC) 40 mg PO DAILY Qty: 30 0RF No Action lisinopril 40 mg tablet 40 mg PO DAILY Qty: 90 3RF hydrochlorothiazide 25 mg tablet 25 mg PO DAILY Qty: 90 1RF Discharge Instructions Instructions: Gastrointestinal Bleeding (DC) Additional Instructions: You were seen in the emergency department today for evaluation of bloody vomit and dark stools as well as chest pain. In our department you had a full physical examination performed, you had laboratory studies that revealed a low red blood cell count, known as anemia, that is much worse than your most recent labs. You also had evidence of injury to your kidneys, and appeared quite dehydrated with low blood pressure and high heart rate. You did not have any sign of heart attack or abnormalities on your chest x-ray to explain your symptoms. We discussed admission to this hospital for ongoing hydration and discussed your case with our general surgeons as I believe you warrant endoscopy to evaluate GI bleeding. At this time, you have elected to leave this hospital AGAINST MEDICAL ADVICE. I do recommend that you come back to the emergency department immediately if you change your mind, or develop worsening symptoms. I did provide you with a prescription for pantoprazole, which can help protect your stomach against acid that worsens bleeding, but this is not a cure for your problem. We had you meet with the men's golf coach and they provided you with information about alcohol sobriety, and a referral to the general surgery team to schedule an endoscopy was placed please follow-up with your primary care provider in the next few days to discuss this visit and any symptoms that change, worsen, or persist. Thank you for allowing us to be part of your care. HPI General Mode of arrival: ambulatory. Date/Time Provider Initiated Documentation: 11/25/24 15:12. Limitations to Documentation: no limitations. Information obtained by: patient and old records reviewed. HPI Narrative: This is a 49-year-old male patient with a history of hypertension, alcohol use disorder, presenting for evaluation of 1 episode of hematemesis on Tuesday, dark stools, and 2 days of chest pain. The patient reports that he had a large volume emesis that had dark red/brown blood in it, filling a small trash can. He reports that for several days after that he noted dark stools, states that he did not have any further episodes of vomiting. And that eventually his stools returned to normal. 2 days ago he developed left-sided chest pain, states that he feels it as a pressure and sometimes has heartburn. Occasionally it makes him feel short of breath. The pain does not radiate, and he does not have any associated abdominal pain. Denies heart history, states that he stopped drinking and eating spicy food on Tuesday to try to improve his vomiting and dark stools, did have a few drinks today, states that he has never gone through alcohol withdrawal. Denies a history of known cirrhosis, does have fatty liver, has never had an endoscopy and is unsure if he has a history of varices or portal hypertension. Related Data Home Medications ?Medication ?Instructions ?Recorded ?Confirmed lisinopril 40 mg tablet 40 mg PO DAILY #90 tabs 06/18/24 11/25/24 hydrochlorothiazide 25 mg tablet 25 mg PO DAILY #90 tabs 10/08/24 11/25/24 pantoprazole 40 mg tablet,delayed 40 mg PO DAILY #30 tabs 11/25/24 release Previous Rx's ?Medication ?Instructions ?Recorded lisinopril 40 mg tablet 40 mg PO DAILY #90 tabs 06/18/24 hydrochlorothiazide 25 mg tablet 25 mg PO DAILY #90 tabs 10/08/24 pantoprazole 40 mg tablet,delayed 40 mg PO DAILY #30 tabs 11/25/24 release Allergies Allergy/AdvReac Type Severity Reaction Status Date / Time No Known Allergies Allergy Verified 11/25/24 15:14 General Stated Complaint: Chest Pain HEVER: 3 Exam Narrative Exam Narrative: Gen: Awake and alert, in no apparent distress HEENT: Non-icteric sclera Neck: Supple Lungs: No apparent respiratory distress, normal respiratory effort. CV: Appears well perfused, heart with tachycardic rate but regular rhythm, strong distal pulses. Chest wall is nontender to palpation Abdomen: Non-distended, soft, nontender to palpation without rigidity, rebound, or guarding Rectal: Rectal examination supervised by CAROL ANN Vizcaino, revealing normal external anus, light brown stool on the glove with no melena or BRBPR no external hemorrhoids or palpable internal masses or hemorrhoids noted MSK: Moves 4 extremities without apparent limitation in ROM Skin: Visualized skin without rashes, cyanosis. Neuro: Normal Gait, no obvious focal deficits or facial asymmetry. Speaks in full, clear sentences. Psych: Appropriate for situation. Course Vital Signs Vital signs: Vital Signs Temperature 36.7 C 11/25/24 15:08 Pulse 115 H 11/25/24 15:08 Respiratory Rate 18 11/25/24 15:08 Blood Pressure 101/56 L 11/25/24 15:08 Pulse Oximetry 95 11/25/24 15:08 Temperature 36.7 C 11/25/24 15:08 Temperature Source Oral 11/25/24 15:08 Pulse 94 H 11/25/24 17:50 Pulse 95 H 11/25/24 17:50 Respiratory Rate 16 11/25/24 17:50 Respiratory Effort Normal, Non-Labored 11/25/24 15:32 Respiratory Depth Normal 11/25/24 15:32 Respiratory Pattern Normal 11/25/24 15:32 Blood Pressure 104/67 11/25/24 17:45 Blood Pressure Mean 76 11/25/24 17:45 Blood Pressure Position Sitting 11/25/24 15:08 Pulse Oximetry 97 11/25/24 17:50 Oxygen Delivery Method Room Air 11/25/24 15:08 Oxygen Flow Rate 0 11/25/24 15:08 Pain Level 1 11/25/24 15:08 Lab/Test Results Lab/Test Results: Laboratory Tests Range/Units 11/25/24 11/25/24 11/25/24 15:26 16:19 18:16 WBC (4.4-10.8) 10^3/uL 5.85 RBC (4.36-5.78) 10^6/uL 2.46 L Hgb (13.5-17.5) g/dL 8.2 L Hct (40.0-50.0) % 23.8 L MCV (80-95) fL 97 H MCH (27.0-33.0) pg 33.3 H MCHC (32.0-36.0) % 34.5 RDW (11.8-14.1) % 13.8 Plt Count (130-400) 10^3/uL 288 MPV (8.0-11.0) fL 9.8 Immature Gran % % 0.5 Neutrophils % % 68.1 Lymphocytes % % 21.5 Monocytes % % 9.4 Eosinophils % % 0.3 Basophils % % 0.2 Nucleated RBC % (0.0-0.3) % 0.0 Absolute Neutrophils (1.2-6.7) 10^3/uL 3.98 Absolute Lymphocytes (1.2-3.4) 10^3/uL 1.26 Absolute Monocytes (0.1-0.8) 10^3/uL 0.55 Absolute Eosinophils (0.0-0.7) 10^3/uL 0.02 Absolute Basophils (0.0-0.2) 10^3/uL 0.01 RBC Morphology See Below Polychromasia Present Basophilic Stippling 1+ PT (9.1-11.1) sec 10.3 INR (0.9-1.1) 1.0 Sodium (136-145) mmol/L 131 L Potassium (3.5-5.1) mmol/L 3.7 Chloride (98-107) mmol/L 95 L Carbon Dioxide (21.0-32.0) mmol/L 26.0 Anion Gap (3-11) mmol/L 10.0 BUN (7-18) mg/dL 61 H Creatinine (0.70-1.30) mg/dL 2.6 H Est GFR (CKD-EPI 2020) (mL/min/1.73m2) 29.68 Glucose (74-106) mg/dL 308 H Calcium (8.5-10.1) mg/dL 9.9 Magnesium (1.8-2.4) mg/dL 2.3 Total Bilirubin (0.2-1.0) mg/dL 0.2 AST (15-37) U/L 36 ALT (16-63) U/L 48 Alkaline Phosphatase (46-116) U/L 62 Troponin I (<or=76) ng/L 11 12 Cancelled Total Protein (6.4-8.2) g/dL 8.0 Albumin (3.4-5.0) g/dL 3.9 Lipase (<78) U/L 132 H ABO/Rh O Positive Antibody Screen NEGATIVE Medical Decision Making This is a 49-year-old male patient presenting for evaluation of hematemesis and dark stool as well as chest pain. My differential includes but is not limited to ACS including STEMI, NSTEMI, unstable angina, certainly considered arrhythmia, pericarditis/myocarditis, aortic pathology. Considered GI bleed, Boerhaave's and esophagitis, peptic ulcer disease, pancreatitis, hepatitis, esophageal varices. Considered pulmonary abnormalities including pneumonia, bronchitis, pleural effusion, pulmonary edema, reactive airway disease, pneumothorax. The patient is without tachycardia, hypoxia, or a pleuritic component to his pain to significantly increase my concern for pulmonary embolism. Considered musculoskeletal pathologies including costochondritis, chest wall pain. An EKG was obtained by myself and reviewed, showing sinus tachycardia without evidence of ischemia, interval abnormality, or ectopy. We will obtain laboratory studies to include CBC, CMP, magnesium, troponin, INR, and type and screen. Given the lack of active GI bleeding, I will hold on CT imaging of the abdomen, but will obtain an x-ray of the chest to evaluate for causes of his chest pain. -I reviewed the patient's laboratory studies, which show no leukocytosis, but a new anemia of 8.2 compared to a normal hemoglobin of 14.1 last summer. He has no associated thrombocytopenia. Chemistry panel reveals mild hyponatremia, and a new BRYANT with a BUN of 61 and a creatinine of 2.6. Prior to today the patient has normal renal function. He is mildly hyperglycemic, no evidence for liver dysfunction. Lipase is slightly elevated, but 2 times the upper limit of normal, which is below our cutoff for severe concern for pancreatitis in the absence of symptoms. Troponin was negative and without increase on 1 hour delta recheck. INR 1.0. Given the new renal dysfunction, I did provide the patient with a liter of IV fluids. I provided him with 80 mg of Protonix for gastric protection in the setting of presumed upper GI bleed. I am concerned as the patient developed soft blood pressures while in the emergency department, with systolics in the high 80s and low 90s. His blood pressure and tachycardia did improve with fluids, he does not meet the cutoff for blood transfusion at this time. I reached out to Dr. Martins with general surgery, as I am concerned that this patient meets admission criteria for his GI bleed given his hemoglobin dropped and low blood pressure. Dr. Martins is in agreement and will follow the patient during his hospitalization. Unfortunately, upon detailing this plan to the patient, he states that he does not want to stay in the hospital and will not be admitted for his condition. I did an extended care conversation with him regarding my concerns for active GI bleeding, hypotension, and renal injury. The patient has capacity, understands the risks of refusing and the benefits of staying, and at this time is electing to leave the hospital AGAINST MEDICAL ADVICE. In an effort to reduce harm, I did provide him with a prescription for Protonix, and had him meet with the men's golf coach for his alcohol use. I also placed a referral for outpatient endoscopy. The patient was counseled that he could return to care at any time and was encouraged in fact to do so if he changed his mind. He remained hemodynamically improved while under my care, ambulated and tolerated oral intake, and left our facility without incident. Vanessa Win MD Quality:[facility] Health Related Social Needs: No Data to Display PFSH All Active Problems (Updated 11/25/24 @ 18:03 by Vanessa Win MD) BRYANT (acute kidney injury) (Acute) Anemia (Chronic) GI bleed (Chronic) Heavy alcohol use (Chronic) cutting down Hepatic steatosis (Chronic) FH: colon cancer in relative diagnosed at >50 years old (Acute) Gout (Chronic) h/o hyperuriciemia; manages with colchicine. Hypertension (Chronic ~2012) Controlled with lisinopril. Medical History (Updated 11/25/24 @ 18:03 by Vanessa Win MD) Tubulovillous adenoma of colon (~12/2023) Tubular adenoma of colon (~12/2023) Surgical History (Updated 12/21/23 @ 11:34 by Vilma Jones) History of colonoscopy (~12/2023) Family History (Updated 10/12/23 @ 11:36 by Lyric Whitaker MD) Mother Hypertension S/p nephrectomy Father Rectal cancer treated with radiation. Hypertension Colon cancer Invasive Adenocarcinoma Son ADHD Maternal Grandfather , age 77 Leukemia Paternal Grandfather , age 62 No problems noted. Maternal Grandmother No problems noted. Paternal Grandmother , age 68 Stroke ? Social History (Updated 12/20/23 @ 14:22 by MARILUZ Zhang) Smoking/Tobacco Use Status: Never Smoking risk assessment performed?: Yes Alcohol Intake: current Alcohol Intake frequency: 0-2 drinks per day Alcohol type: beer, wine, hard liquor and other Drug use: Never Substance use type: does not use Counseling given: No Caregiver/Support person: No Household members: spouse and children Housing: house Number of Children: 1 Communication Needs: Hard of Hearing Education Level: college current occupation: Does [employer] Sexually active: Yes Do you think of yourself as: straight/heterosexual Current gender identity: male and decline to answer What is your relationship status?: How often do you talk on the phone with friends or family?: three or more times per week How often do you get together with friends or relatives?: never How often do you attend adventist or lutheran services?: decline to answer Do you belong to any clubs or organized social groups?: no Panel score (0-1 are the most socially isolated patients): 2 What type of physical activity do you participate in: walking Duration: 15-30 minutes/day Frequency: 1-2 times per week Sonam/Scientologist: Non orthodoxy Special sonam needs: No Seatbelt use: always Helmet use: No Drive intox or ride w/intox tier truck driver: No Do you feel safe at home: Yes Do you feel safe in your relationship?: Yes Victim of physical abuse: No Victim of emotional abuse: No Victim of sexual abuse: No Would you like helpful sources: No PAWSS Have you Been Recently Intoxicated or Drunk Within the Last 30 days?: Yes Have you Ever Experienced Previous Episodes of Alcohol Withdrawal?: No Have you ever Experienced Withdrawal Seizures?: No Have you ever Experienced Delirium Tremens(DT)s?: No Have you ever undergone Alcohol Rehabilitation Treatment (i.e, inpt ot outpatient treatment programs)?: No Have you ever Experienced Blackouts?: Yes Have you ever Combined Alcohol with other Downers within the last 90 days?: No Have you ever Combined Alcohol with any other Substance of Abuse during the last 90 days?: No Positive Blood Alcohol level on Presentation? [PCS.BAL]: Yes Evidence of Increased Autonomic Activity (i.e. HR>120, tremor, sweating, agitation, nausea)?: No Result: 3
[2024-11-25] MEDS: Pantoprazole 40 MG TABCR 120 MG PO (18:12)
== END 2024-11-25 18:16 | disposition left against medical advice (07) ==
PROVIDERS: Emergency Provider Emergency Medicine; PCP Family Medicine
DX: K92.2 Gastrointestinal hemorrhage, unspecified (principal); F10.90 Alcohol use, unspecified, uncomplicated; D64.9 Anemia, unspecified; E87.1 Hypo-osmolality and hyponatremia; N17.9 Acute kidney failure, unspecified; R00.0 Tachycardia, unspecified
CPT/HCPCS: 36415; 80053; 83690; 86850; 86900; 86901; 93005; 96361; 96374; 99285; 71046; 83735; 84484; 85025; 85610; 93010; 99284; J2470

== ENCOUNTER 2024-12-11 14:01 | Outpatient (CLI) | payer OTHER, SELFPAY ==
[2024-12-11 12:25] LABS: Abs Immature Grans 0.01 10^3/uL (0.0-0.06); Absolute Basophil Count 0.03 10^3/uL (0.0-0.2); Absolute Eosinophil Count 0.01 10^3/uL (0.0-0.7); Absolute Monocyte Count 0.34 10^3/uL (0.1-0.8); Absolute Neutrophil Count 2.83 10^3/uL (1.2-6.7); Basophils % 0.7 %; Eosinophils % 0.2 %; HCT 30.6 % (40.0-50.0); Immature Grans % 0.2 %; Lymphocytes % 27.1 %; MCH 31.9 pg (27.0-33.0); MCHC 32.7 % (32.0-36.0); MCV 98 fL (80-95); MPV 9.1 fL (8.0-11.0); Monocytes % 7.7 %; Neutrophils % 64.1 %; Platelet Count 138 10^3/uL (130-400); RBC 3.13 10^6/uL (4.36-5.78); RDW 13.1 % (11.8-14.1); WBC 4.42 10^3/uL (4.4-10.8)
[2024-12-11 13:02] LABS: Anion Gap 12.6 mmol/L (3-11); BUN 12 mg/dL (7-18); CO2 25.4 mmol/L (21.0-32.0); CREATININE 1.5 mg/dL (0.70-1.30); Calcium 9.4 mg/dL (8.5-10.1); Chloride 102 mmol/L (98-107); Estimated GFR 57.43 (mL/min/1.73m2); Glucose 90 mg/dL (74-106); Sodium 140 mmol/L (136-145)
[2024-12-11 13:55] LABS: Iron 44 ug/dL (65-175); Total Iron Binding Capacity 524 ug/dL (250-450); Transferrin Sat 8 % (20-55)
== END 2024-12-11 14:02 | disposition home or self-care (01) ==
LOC: LBO 14:02
PROVIDERS: PCP Family Medicine; Visit Provider Surgery
DX: I10 Essential (primary) hypertension (principal); N17.9 Acute kidney failure, unspecified; K92.2 Gastrointestinal hemorrhage, unspecified; D64.9 Anemia, unspecified
CPT/HCPCS: 36415; 80048; 83540; 83550; 85025

== ENCOUNTER 2024-12-18 06:04 | Day surgery (SDC) | payer OTHER, SELFPAY ==
--- NOTE | 2024-12-17 20:23 | W.PM.DSUDISC ---
Date of service: 12/18/24 Discharge Plan Disposition Patient Disposition: Home Condition: Good Discharge Details Reason For Visit: EGD Attending Provider: Hemal Martins Primary Care Provider: Lyric Whitaker Home Meds and New Rx's Prescriptions: Continued cyanocobalamin (vitamin B-12) 1,000 mcg capsule 1,000 mcg PO DAILY pantoprazole 40 mg tablet,delayed release (DR/EC) 40 mg PO DAILY Qty: 30 2RF lisinopril 40 mg tablet 40 mg PO DAILY Qty: 90 3RF hydrochlorothiazide 25 mg tablet 25 mg PO DAILY Qty: 90 1RF ferrous sulfate 324 mg (65 mg iron) tablet,delayed release (DR/EC) 324 mg PO DAILY Qty: 30 0RF Patient Comments: Pt has not started. multivitamin Tablet 1 tab PO DAILY Qty: 90 0RF Discharge Instructions Additional Instructions: Demetris, it was good seeing you today, and I hope you make a quick recovery from the procedure. Things went very smoothly. There is a little bit of irregularity near the connection of your esophagus onto your stomach. This is consistent with chronic mild reflux across the area, and I do not think it represents anything worrisome. I did do some biopsies of this area to rule out [place]'s esophagus which is a more advanced form of chronic inflammation. The majority of your stomach proper looks okay. There is a little bit of inflammation in the bottom part of your stomach called the antrum, that is consistent with mild gastritis, or again irritation from stomach acid. There is a little bit of irregular folding here, which I suspect may be an old ulcer site. Essentially, scar tissue in your stomach. I did some biopsies of this as well as a few other places to make sure there is nothing else that I am missing. The results of all the biopsies will take a week or 2 to get back, but my office will be in touch once we have that information. In the meantime, I would continue using the pantoprazole medication, which is an antacid to help reduce inflammation in the stomach and minimize bleeding which is probably contributing to your anemia. If you have any questions at all, please do not hesitate to call, otherwise we will be in touch once we have all those results. 1. If tolerated, consume a soft, low fiber diet for 1-2 days. 2[address] Do not drive, drink alcohol, operate machinery, make critical decisions, or do activities that require coordination or balance for 24 hours. 3. You may experience a sore throat for 24 to 48 hours. You may use throat lozenges or gargle with warm salt water to relieve the discomfort. 4. Because air was put into your stomach during the procedure, you may experience some belching. 5. Go directly to the emergency room if you notice any of the following: Develop chills (warm to touch), or if you have a thermometer and your temperature is above 101 Difficulty breathing or difficultly swallowing Persistent vomiting Severe abdominal pain, other than gas cramps Severe chest pain Black, tarry stools Any bleeding ? exceeding one tablespoon 6. Call your physician if the site where your intravenous was started becomes red, swollen, painful, and warm to touch. 7. Your physician has reviewed your pre-procedure medications. Please continue to take those medications as previously ordered. You will be given specific information/education regarding any changes to your medications before leaving. Activity:: Activity as Tolerated Diet:: As Tolerated Discharge Orders Discharge Orders: Discharge Order (Routine); Ordered 12/17/24 Ordered By: Hemal Martins DS: Diagnosis Discharge Diagnosis (1) Hematemesis: Status: Acute Asessment and Plan: Follow-up on biopsy results
--- NOTE | 2024-12-17 20:25 | W.PM.ENDDOP ---
Date of service: 12/18/24 Time of Service: 07:58 Endoscopy Report DATE OF PROCEDURE: 12/18/24 PRE-OP DIAGNOSIS: hematemasis POST-OP DIAGNOSIS: other (Reflux esophagitis, antritis with scarring, duodenitis) PROCEDURE: EGD with biopsies SURGEON: Hemal Martins ANESTHESIA TYPE: General:No Airway ESTIMATED BLOOD LOSS: 5 PATHOLOGY: other (Nondirected biopsies of duodenum, duodenal bulb, antrum, gastric body, and GE junction) COMPLICATIONS: None DISPOSITION: same day INDICATIONS: Demetris is a 49 year old man with hematemasis PROCEDURE START TIME: 07:37 PROCEDURE END TIME: 07:46 FINDINGS: Mild irregularity of the Z-line at 36 cm, antral gastritis and duodenitis PROCEDURE DESCRIPTION: After the initiation of anesthesia, and with the assistance of a bite block, I advanced a standard gastroscope through the mouth past the hypopharynx and into the esophagus.? Under the direct vision of the scope, I advanced down the esophagus towards the stomach.? The upper, mid, and lower esophagus were all normal in course and caliber. There was very mild irregularity of the Z-line around 36 cm from the incisors. Narrowband imaging was used to assist with the analysis. This did not appear consistent with [place]'s esophagus. I am able to advance across the GE junction with ease. I performed retroflexion. It does look like there might be a small sliding hiatal hernia, but this is little difficult to decipher. The stomach was then insufflated into the rugae were completely obliterated. Gastric mucosa was largely normal-appearing, with the exception of little bit of inflammation down to the gastric antrum consistent with gastritis. There was also some folding along the lesser curvature. Great care was taken to irrigate all of this clear, and advance across it several times. I did not see any signs of active ulceration here, however the confirmation suggest a previous ulcer that was probably healed. Unable to advance across the pylorus into the duodenum with ease. There is a little bit of blunting of the duodenal villi, but it does not appear totally consistent with celiac disease. I advanced down as far as the third portion of the duodenum. There was a few areas of duodenitis, with no severe ulceration or active bleeding. I performed some nondirected biopsies of the duodenum and duodenal bulb. This was done with cold forceps without any issues. I brought the camera back up to the stomach, and biopsied the area of the antral scarring, as well as a few areas of the gastric body to rule out Helicobacter pylori. Finally, I brought the camera up to the GE junction and perform some biopsies of this to rule out [place]'s. The stomach was then emptied, and the camera was removed.
[2024-12-18 06:15] VITALS: BP 150/97; PULSE 82; RESP 16; TEMP 36.6; O2SAT 100
[2024-12-18] MEDS: Lactated Ringers 1,000 ML 80 ML IV (07:00)
--- NOTE | 2024-12-18 07:06 | ANES.PREOP_ITS ---
General Info Date of Service Date Performed: 12/18/24 Height: 5 ft 5 in Weight: 83.4 kg Body Mass Index (BMI): 30.6 Surgical Procedure: Operation Date: 12/18/24 07:35 Proposed Procedure Side Surgeon p Gastroscopy Hemal Martins MD Meds Allergies and Home Medications Allergies Allergy/AdvReac Type Severity Reaction Status Date / Time No Known Allergies Allergy Verified 12/18/24 06:44 Home Medication ?Medication ?Instructions ?Recorded lisinopril 40 mg tablet 40 mg PO DAILY #90 tabs 06/03 12/25 hydrochlorothiazide 25 mg tablet 25 mg PO DAILY #90 ta bs 10/08/24 ferrous sulfate 324 mg (65 mg 324 mg PO DAILY #30 tabs 11/26/24 iron) tablet,delayed release multivitamin 1 tab PO DAILY #90 tabs 11/02 12/26 cyanocobalamin (vitamin B-12) 1,000 mcg PO DAILY 12/12 1,000 mcg capsule pantoprazole 40 mg tablet,delayed 40 mg PO DAILY #30 t abs 12/12/24 release Current Visit Medications: Current Medications Generic Name Dose Route Start Last Admin Trade Name Freq PRN Reason Stop Dose Admin Ringer's Solution 1,000 mls @ 80 mls/hr 12/18/24 06:00 IV 12/18/24 23:59 INFUSION [facility] [place] IV Miscellaneous Supplies 1 each 12/18/24 06:00 Iv Access IV 12/18/24 23:59 DIRECTED KEZIA Ondansetron HCl 4 mg 12/17/24 20:27 Ondansetron 4 Mg/2 Ml Vial IVP 01/16/25 20:26 Q4H PRN PRN Nausea / Vomiting Sodium Chloride 0 ml 12/18/24 06:00 Normal Saline Flush 10 Ml Syr IV 12/18/24 23:59 PRN PRN Sodium Chloride 0 ml 12/18/24 06:00 Normal Saline 10 Ml Vial IJ 12/18/24 23:59 DIRECTED PRN Sterile Water 0 ml 12/18/24 06:00 Water,Injection,Sterile 10 Ml Vial IJ 12/18/24 23:59 DIRECTED PRN PFSH Active Problems Active Problems: Problem Status Onset Code Hematemesis Acute K92.0 Anemia Chronic D64.9 GI bleed Chronic K92.2 Heavy alcohol use Chronic F10.90 Hepatic steatosis Chronic K76.0 FH: colon cancer in relative diagnosed at >50 years old Acute Z80.0 Gout Chronic M10.9 Hypertension Chronic ~2013 I10 Medical History Medical History BRYANT (acute kidney injury) after episode of hematemesis Tubulovillous adenoma of colon (~12/2023) Tubular adenoma of colon (~12/2023) Surgical History Surgical History History of colonoscopy (~12/2023) Tobacco Smoking/Tobacco Use Status: Never Passive smoking exposure: No Alcohol Alcohol Intake: current Alcohol intake frequency: 0-2 drinks per day Alcohol type: beer, wine, hard liquor and other Substance Use Substance use: Never Substance use type: does not use Vital Signs and Lab Results Vital Signs Most Recent Vital Signs in EMR: Most Recent Vital Signs Temp Pulse Resp BP Pulse Ox 36.6 C 82 16 150/97 H 100 12/18/24 06:15 12/18/24 06:15 12/18/24 06:15 12/18/24 06:15 12/18/24 06:15 Lab Results Blood Type / Crossmatch: Antibody Screen NEGATIVE 11/25/24 Complete Blood Count: WBC, (4.4-10.8) 4.42 10^3/uL 12/11/24, 12:16 RBC, (4.36-5.78) 3.13 10^6/uL L 12/11/24, 12:16 Hgb, (13.5-17.5) 10.0 g/dL L 12/11/24, 12:16 Hct, (40.0-50.0) 30.6 % L 12/11/24, 12:16 Plt Count, (130-400) 138 10^3/uL 12/11/24, 12:16 Complete Metabolic Panel: Sodium, (136-145) 140 mmol/L 12/11/24, 12:16 Potassium, (3.5-5.1) 4.0 mmol/L 12/11/24, 12:16 Chloride, (98-107) 102 mmol/L 12/11/24, 12:16 Carbon Dioxide, (21.0-32.0) 25.4 mmol/L 12/11/24, 12 :16 BUN, (7-18) 12 mg/dL 12/11/24, 12:16 Creatinine, (0.70-1.30) 1.5 mg/dL H 12/11/24, 12:16 Est GFR (CKD-EPI 2020), (mL/min/1.73m2) 57.43 12/11/24, 12:16 Magnesium, (1.8-2.4) 2.3 mg/dL 11/25/24, 15:26 Calcium, (8.5-10.1) 9.4 mg/dL 12/11/24, 12:16 Albumin, (3.4-5.0) 3.9 g/dL 11/25/24, 15:26 Glucose, (74-106) 90 mg/dL 12/11/24, 12:16 Liver Function Panel: ALT, (16-63) 48 U/L 11/25/24, 15:26 AST, (15-37) 36 U/L 11/25/24, 15:26 Coagulation Panel: INR, (0.9-1.1) 1.0 11/25/24, 15:26 PT, (9.1-11.1) 10.3 sec 11/25/24, 15:26 Cardiac Panel: Troponin I, (<or=76) 12 ng/L 11/25/24 Pancreas Panel: Lipase, (<78) 132 U/L H 11/25/24, 15:26 Anesthesia Assessment and Plan Anesthesia History Personal History: No History of Anesthesia Complications Family History: No Family History of Anesthesia Complications Exercise Tolerance Exercise Tolerance: Metabolic Equivalents>4 Pertinent Negatives Pertinent Negatives: No Symptoms of GERD Cardiac & Pulmonary Exam Cardiac Exam: Normal S1/S2 Heart Sounds Pulmonary Exam: Clear Bilateral Breath Sounds Implantable Cardiac Device Does patient have a Pacemaker or an ICD?: No Airway Exam Known Difficult Airway: No Mallampati Class: 3 Mouth Opening: Normal (> 3cm) Thyromental Distance: Greater than 3 cm Neck Range of Motion: Full ROM Neck Circumference: Normal Teeth Condition: Normal Dentition ASA Classification ASA Score: ASA 2 Emergency Case?: No NPO Status NPO Status: NPO Clears >2 hours, Solids >8 hours Anesthesia Plan Resuscitation Status: Full Code Anesthesia Technique: General Anesthesia Airway Planned: Natural Airway Monitors Used: Standard Monitors
[2024-12-18 07:07] VITALS: BMI 30.6
--- NOTE | 2024-12-18 07:38 | STOM_PTH ---
PATIENT: Demetris Torres LOC: [facility] U#:[id number] AGE/SX: 49/M ROOM: RE12/18/[address]: Hemal Martins MD : [id number] BED: DIS: 12/18/2024 SPEC #: [id number] RECD: 12/18/24 12:29 STATUS: [place]UST[place] RE #: [id number] CHRISTINE: 12/18/24 07:[address]: Hemal Martins DEPT: Surgical Specimen RECD BY: Sejal Maldonado ENTERED: 12/18/24 12:31 SP TYPE: STOMACH OTHR DR: Lyric Whitaker Tissues: 1 - BIOPSY BOWEL 2 - BIOPSY BOWEL 3 - STOMACH BIOPSY 4 - STOMACH BIOPSY 5 - ESOPHAGUS BIOPSY Procedures: GROSS AND MICRO LEVEL 4 Comments: [id number]
[2024-12-18 07:47] VITALS: BP 140/96; PULSE 99; RESP 15; TEMP 36.7; O2SAT 99
[2024-12-18 08:11] VITALS: BP 139/98; PULSE 85; RESP 16; TEMP 36.5; O2SAT 95
--- NOTE | 2024-12-18 09:01 | W.ANESPOSTOP ---
Postoperative Evaluation Date, Time and Location Date Performed: 12/18/24 Time Performed: 08:17 Patient Location: Day Surgery Unit Vital Signs Most Recent Imported Vital Signs: Most Recent Vital Signs Temp Pulse Resp BP Pulse Ox 36.5 C 85 16 139/98 H 95 12/18/24 08:11 12/18/24 08:11 12/18/24 08:11 12/18/24 08:11 12/18/24 08:11 Pain Score Most Recent Pain Score: Most Recent Pain Score Pain Level 0 12/18/24 08:11 Assessment Mental Status: Awake (Alert & Oriented to Patient Baseline) Airway and Respiratory Function: Patent airway with normal (patient baseline) respiratory exam Cardiovascular Function: Hemodynamically Stable Hydration Status: Adequately Hydrated Nausea & Vomiting: No Nausea or Vomiting Pain: Pt. Denies Any Pain Peripheral Nerve Block: Patient did not receive a nerve block
== END 2024-12-18 08:30 | disposition home or self-care (01) ==
LOC: SUR 06:05
PROVIDERS: PCP Family Medicine; Visit Provider Surgery
PROC: 0DJ68ZZ Inspection of Stomach, Via Natural or Artificial Opening Endoscopic (ICD-10-PCS; CPT 43235; principal; 2024-12-18 07:30)
DX: K92.0 Hematemesis (principal); K21.00 Gastro-esophageal reflux disease with esophagitis, without bleeding; K29.80 Duodenitis without bleeding; J32.0 Chronic maxillary sinusitis; K31.9 Disease of stomach and duodenum, unspecified
CPT/HCPCS: 43239; 88305; J2003; J2704

== ENCOUNTER 2025-01-29 13:30 | Outpatient (CLI) | payer OTHER, SELFPAY ==
[2025-01-29 12:35] LABS: ESR 39 mm/hr (0-15)
[2025-01-29 12:56] LABS: Uric Acid 12.1 mg/dL (3.5-7.2)
== END 2025-01-29 13:31 | disposition home or self-care (01) ==
LOC: LBO 13:30
PROVIDERS: PCP Family Medicine; Visit Provider Family Medicine
DX: M19.90 Unspecified osteoarthritis, unspecified site (principal)
CPT/HCPCS: 36415; 85652; 84550; 86038; 86431

== ENCOUNTER 2025-03-25 07:25 | Outpatient (CLI) | payer OTHER, SELFPAY ==
--- NOTE | 2025-03-25 11:25 | DI.RAD_ITS ---
Exam(s) XR ANKLE LT COMPLETE EXAM: XR ANKLE LT COMPLETE CLINICAL HISTORY: chronic pain,gout,m1a.9xx1 TECHNIQUE: 2D digital imaging was performed of the left ankle. Three images were obtained. AP, lateral and oblique views were obtained. COMPARISON: CR XR ANKLE RT COMPLETE from 03/25/2025 FINDINGS: BONES: No acute fracture is present. No bony destructive lesion is seen. There are no erosions seen in the ankle. JOINTS:The ankle mortise is normally aligned. Joint space is well maintained. SOFT TISSUE: No soft tissue swelling is seen. Vascular calcifications are present. IMPRESSION: The joint space is well maintained. No soft tissue swelling is seen. No erosions are present. DATA REPOSITORY: RADIATION DOSE DELIVERED:
--- NOTE | 2025-03-25 11:25 | DI.RAD_ITS ---
Exam(s) XR KNEE RT 3V AP,LAT,TAYLOR EXAM: XR KNEE RT 3V AP,LAT,TAYLOR CLINICAL HISTORY: chronic pain,gout,m1a.9xx1. TECHNIQUE: 2D digital imaging was performed. Three views. COMPARISON: CR XR KNEE LT 3V AP,LAT,TAYLOR from 03/25/2025 FINDINGS: BONES: No acute fracture is present. No bony destructive lesion is seen. JOINTS: The knee is normally aligned. No joint effusion is seen. Joint spaces are maintained. No significant degenerative changes. SOFT TISSUE: Stool soft tissue swelling near the lower pole of the patella. No associated calcifications. IMPRESSION: Soft tissue swelling at the lower pole of the patella. DATA REPOSITORY: RADIATION DOSE DELIVERED:
--- NOTE | 2025-03-25 11:26 | DI.RAD_ITS ---
Exam(s) XR KNEE LT 3V AP,LAT,TAYLOR EXAM: XR KNEE LT 3V AP,LAT,TAYLOR CLINICAL HISTORY: chronic pain,gout,m1a.9xx1. TECHNIQUE: 2D digital imaging was performed. Three views. COMPARISON: No exams were available for comparison FINDINGS: BONES: No acute fracture is present. No bony destructive lesion is seen. Small enthesophyte at the quadriceps insertion. JOINTS: The knee is normally aligned. The joint spaces are maintained. There is mild periarticular spurring. A small joint effusion is seen. SOFT TISSUE: Faint vascular calcifications. IMPRESSION: Mild degenerative changes and small joint effusion. DATA REPOSITORY: RADIATION DOSE DELIVERED:
--- NOTE | 2025-03-25 11:26 | DI.RAD_ITS ---
Exam(s) XR ANKLE RT COMPLETE EXAM: XR ANKLE RT COMPLETE CLINICAL HISTORY: chronic pain,gout,m1a.9xxa. TECHNIQUE: 2D digital imaging was performed of the right ankle. Three images were obtained. AP, lateral and oblique views were obtained. COMPARISON: No exams were available for comparison FINDINGS: BONES: No acute fracture is present. No bony destructive lesion is seen. There are no erosions seen. JOINTS: The ankle mortise is normally aligned. The ankle joint is well maintained. SOFT TISSUE: There is focal soft tissue swelling on the dorsum of the foot overlying the tarsal bones. No soft tissue calcifications are seen in this region. Vascular calcifications are present. IMPRESSION: 1. Soft tissue swelling on the dorsum of the foot. No associated soft tissue calcifications are seen. 2. The ankle joint is well maintained. No erosions are seen. DATA REPOSITORY: RADIATION DOSE DELIVERED:
== END 2025-03-25 07:45 ==
LOC: DI 07:25
PROVIDERS: PCP Family Medicine; Visit Provider Family Medicine
DX: M1A.9XX1 Chronic gout, unspecified, with tophus (tophi) (principal)
CPT/HCPCS: 73562; 73610

== ENCOUNTER 2025-04-16 10:59 | Outpatient (CLI) | payer OTHER, SELFPAY ==
[2025-04-16 13:04] LABS: Abs Immature Grans 0.01 10^3/uL (0.0-0.06); HCT 35.3 % (40.0-50.0); HGB 12.2 g/dL (13.5-17.5); Immature Grans % 0.1 %; MCH 31.2 pg (27.0-33.0); MCHC 34.6 % (32.0-36.0); MCV 90 fL (80-95); MPV 10.2 fL (8.0-11.0); Platelet Count 202 10^3/uL (130-400); RBC 3.91 10^6/uL (4.36-5.78); RDW 16.0 % (11.8-14.1); RDW-SD 53.3 fL; WBC 6.84 10^3/uL (4.4-10.8)
[2025-04-16 13:49] LABS: ALT 78 U/L (16-63); AST 81 U/L (15-37); Albumin 4.3 g/dL (3.4-5.0); Alkaline Phosphatase 88 U/L (46-116); Anion Gap 14.6 mmol/L (3-11); BUN 14 mg/dL (7-18); Bilirubin, Total 0.6 mg/dL (0.2-1.0); CO2 26.4 mmol/L (21.0-32.0); Calcium 9.9 mg/dL (8.5-10.1); Chloride 97 mmol/L (98-107); Estimated GFR 68.19 (mL/min/1.73m2); Glucose 77 mg/dL (74-106); Potassium 4.4 mmol/L (3.5-5.1); Sodium 138 mmol/L (136-145); Total Protein 8.3 g/dL (6.4-8.2); Uric Acid 4.8 mg/dL (3.5-7.2)
== END 2025-04-16 11:00 | disposition home or self-care (01) ==
LOC: LBO 10:59
PROVIDERS: PCP Family Medicine; Visit Provider Family Medicine
DX: M1A.9XX0 Chronic gout, unspecified, without tophus (tophi) (principal); M1A.09X0 Idiopathic chronic gout, multiple sites, without tophus (tophi); Z00.00 Encounter for general adult medical examination without abnormal findings; I10 Essential (primary) hypertension; D64.9 Anemia, unspecified
CPT/HCPCS: 36415; 80053; 84550; 85025